=== PATIENT | female | born 1930 | race Two or more races ===

== ENCOUNTER → 2017-04-15 | Outpatient (CLI) | payer MEDICARE, MEDICAID ==
[~2017-04-15] MED LIST: ALEN70TA46 PO; DOCU-138 PO; GABA-531 PO; HYDROCORTISONE PO; LEVO50TA8 PO; LISI-186 PO; MIRT15TA6 PO; OMEP20CA10 PO; SIMV10TA6 PO; VIT D PO
== END | disposition home or self-care (01) ==
LOC: MRI 09:51
PROVIDERS: ATTEND Neurological Surgery
DX: M48.54XA Collapsed vertebra, not elsewhere classified, thoracic region, initial encounter for fracture (principal); M48.061 Spinal stenosis, lumbar region without neurogenic claudication; M12.88 Other specific arthropathies, not elsewhere classified, other specified site; M51.26 Other intervertebral disc displacement, lumbar region; X58.XXXA Exposure to other specified factors, initial encounter; Y93.89 Activity, other specified; Y92.89 Other specified places as the place of occurrence of the external cause; Y99.8 Other external cause status
CPT/HCPCS: 72148

== ENCOUNTER 2018-05-07 09:58 | Inpatient (IN) | payer MEDICARE, MEDICAID ==
[~2018-05-07] VITALS: Ht 142.2 cm; Wt 45.0 kg
[2018-05-07 10:28] LABS: BASOPHILS % 0.5 % (0.0-2.0); EOSINOPHILS % 2.1 % (0.0-5.0); HEMATOCRIT. 41.3 % (36.0-48.0); HEMOGLOBIN. 13.7 g/dL (12.0-16.0); LYMPHOCYTES % 38.4 % (20.0-50.0); MEAN CORPUSCULAR HEMOGLOBIN 29.9 pg (28.0-32.0); MEAN CORPUSCULAR VOLUME 90.4 fL (81.0-99.0); MEAN PLATELET VOLUME 7.6 fl (7.4-10.4); MONOCYTES % 7.2 % (2.0-8.0); NEUTROPHILS % 51.8 % (40.0-76.0); PLATELET 231 x1000/uL (130-400); RED BLOOD CELL COUNT 4.57 mill/uL (4.2-5.4); RED CELL DISTRIBUTION WIDTH 15.7 % (11.6-14.6)
[2018-05-07] MEDS ORDERED: SODIUM CHLORIDE 0.9% 1,000 ML IV ONE (10:29)
[2018-05-07 10:34] LABS: CHLORIDE 101 mEq/L (98-107)
[2018-05-07 10:38] LABS: ETHANOL BLOOD < 10 mg/dL
[2018-05-07] MEDS ORDERED: LORAZEPAM 2MG/ML CPJ ONE (10:41)
[2018-05-07] MEDS ORDERED: ATROPINE SULFATE 1MG/10ML SYR ONE (10:41)
[2018-05-07] MEDS ORDERED: LEVOFLOXACIN 750MG PREMIX 150 ML IV ONE (10:45)
[2018-05-07] MEDS ORDERED: SODIUM CHLORIDE 0.9% 1000ML BAG (SEPSIS BOLUS) IV ONE (10:45)
[2018-05-07] MEDS ORDERED: LEVETIRACETAM 1000MG/100ML 100 ML IV ONE (10:45)
[2018-05-07] MEDS: SODIUM CHLORIDE 0.45% 1,000 ML IV SCH (11:59)
[2018-05-07] MEDS ORDERED: NA PHOS,M-B/NA PHOS,DI-BA ENEMA 118ML PR PRN (12:00)
[2018-05-07] MEDS ORDERED: ONDANSETRON HCL 4MG/2ML INJ IV PRN (12:00)
[2018-05-07] MEDS ORDERED: IPRATROPIUM/ALBUTEROL 0.5-3(2.5)MG/3ML NEB INH PRN (12:00)
[2018-05-07] MEDS ORDERED: ENOXAPARIN 40MG/0.4ML SYR SUBCUT SCH (12:00)
[2018-05-07] MEDS ORDERED: HYDROMORPHONE HCL/PF 2MG/ML CPJ IV PRN (12:00)
[2018-05-07] MEDS ORDERED: MAGNESIUM/ALUMINUM HYDROXIDE/SIMETHICONE 30ML UDC PO PRN (12:00)
[2018-05-07] MEDS ORDERED: GUAIFENESIN 200MG/10ML SUGAR FREE UDC PO PRN (12:00)
[2018-05-07] MEDS ORDERED: DIPHENHYDRAMINE 50MG/ML VIAL IV PRN (12:00)
[2018-05-07] MEDS ORDERED: DOCUSATE SODIUM 100MG CAPSULE PO PRN (12:00)
[2018-05-07] MEDS ORDERED: HYDROCODONE/ACETAMINOPHEN 5/325MG TABLET PO PRN (12:00)
[2018-05-07 12:39] LABS: PROTHROMBIN TIME 10.5 sec (9.1-11.1)
[2018-05-07 13:05] LABS: CLARITY URINE CLEAR (CLEAR); COLOR URINE YELLOW (YELLOW); KETONES URINE NEGATIVE (NEGATIVE); LEUKOCYTE ESTERASE URINE NEGATIVE (NEGATIVE); NITRITE URINE NEGATIVE (NEGATIVE); OCCULT BLOOD URINE TRACE (NEGATIVE); PH URINE 7.5 (4.5-8.0); PROTEIN URINE NEGATIVE (NEGATIVE); SPECIFIC GRAVITY URINE 1.006 (1.005-1.030); UROBILINOGEN URINE 0.2 E.U./dL (0.2-1.0)
[2018-05-07 13:15] LABS: *BARBITURATES SCREEN URINE NEGATIVE (NEGATIVE); CANNABINOID URINE SCREEN NEGATIVE (NEGATIVE); METHADONE URINE SCREEN NEGATIVE (NEGATIVE); OPIATES URINE SCREEN NEGATIVE (NEGATIVE); PHENCYCLIDINE URINE SCREEN NEGATIVE (NEGATIVE)
[2018-05-07 13:16] LABS: *AMPHETAMINES SCREEN URINE NEGATIVE (NEGATIVE); *BENZODIAZEPINES SCREEN URINE NEGATIVE (NEGATIVE); *COCAINE SCREEN URINE NEGATIVE (NEGATIVE)
[2018-05-07 16:05] VITALS: BP 155/70
[2018-05-07 16:23] VITALS: BP 155/70
[2018-05-07] MEDS: ENOXAPARIN 30MG/0.3ML SYR SUBCUT SCH (16:47)
[2018-05-07 18:00] VITALS: BP 144/81
[2018-05-07] MEDS ORDERED: DEXTROSE 50% WATER 50ML SYRINGE IV PRN (19:45)
[2018-05-07 20:00] VITALS: BP 135/82
[2018-05-07] MEDS: INSULIN LISPRO 100 UNITS/ML SUBCUT SCH (21:00)
[2018-05-07] MEDS: BLOOD SUGAR DIAGNOSTIC STRIP TEST SCH (21:00)
[2018-05-07 22:00] VITALS: BP 135/81
[2018-05-08] VITALS (13 sets, daily range): BP systolic 110–171; BP diastolic 42–91
[2018-05-08 00:10] LABS: CHLORIDE 104 mEq/L (98-107)
[2018-05-08] MEDS: BLOOD SUGAR DIAGNOSTIC STRIP TEST SCH ×4 (07:14→21:03)
[2018-05-08] MEDS: INSULIN LISPRO 100 UNITS/ML SUBCUT SCH ×4 (07:15→21:00)
[2018-05-08] MEDS: CLONIDINE 0.1MG TABLET PO PRN ×2 (08:13→23:16)
[2018-05-08 08:28] LABS: BASOPHILS % 0.7 % (0.0-2.0); EOSINOPHILS % 2.5 % (0.0-5.0); HEMATOCRIT. 38.2 % (36.0-48.0); HEMOGLOBIN. 12.7 g/dL (12.0-16.0); MEAN CORPUSCULAR HEMOGLOBIN 29.8 pg (28.0-32.0); MEAN CORPUSCULAR VOLUME 89.6 fL (81.0-99.0); MEAN PLATELET VOLUME 8.2 fl (7.4-10.4); MONOCYTES % 8.8 % (2.0-8.0); PLATELET 214 x1000/uL (130-400); RED BLOOD CELL COUNT 4.26 mill/uL (4.2-5.4)
[2018-05-08] MEDS ORDERED: ASPIRIN 81MG EC TABLET PO SCH (09:00)
[2018-05-08 09:02] LABS: CHLORIDE 102 mEq/L (98-107)
[2018-05-08 09:21] LABS: T4 FREE 1.16 ng/dL (0.76-1.46)
[2018-05-08 09:22] LABS: HDL CHOLESTEROL 80 mg/dL (40-59); LDL CHOLESTEROL 69 mg/dL (5-100)
[2018-05-08] MEDS: AMLODIPINE 5MG TABLET PO SCH ×2 (11:40→20:59)
[2018-05-08] MEDS: SODIUM CHLORIDE 0.45% 1,000 ML IV SCH (11:40)
[2018-05-08] MEDS: LISINOPRIL 10MG TABLET PO SCH ×2 (14:03→20:58)
[2018-05-08] MEDS: ENOXAPARIN 30MG/0.3ML SYR SUBCUT SCH (17:10)
[2018-05-08] MEDS: ACETAMINOPHEN 325MG TABLET PO PRN (20:59)
[2018-05-08] MEDS: LORAZEPAM 2MG/ML CPJ IV PRN (23:17)
[2018-05-09] VITALS: BP 136/70
[2018-05-09 04:00] VITALS: BP 136/79
[2018-05-09] MEDS: SODIUM CHLORIDE 0.45% 1,000 ML IV SCH (04:24)
[2018-05-09] MEDS: BLOOD SUGAR DIAGNOSTIC STRIP TEST SCH ×4 (06:43→20:18)
[2018-05-09 07:24] LABS: BASOPHILS % 0.8 % (0.0-2.0); EOSINOPHILS % 3.7 % (0.0-5.0); HEMATOCRIT. 40.1 % (36.0-48.0); HEMOGLOBIN. 13.1 g/dL (12.0-16.0); LYMPHOCYTES % 30.3 % (20.0-50.0); MEAN CORPUSCULAR HEMOGLOBIN 29.6 pg (28.0-32.0); MEAN CORPUSCULAR VOLUME 90.6 fL (81.0-99.0); MEAN PLATELET VOLUME 7.7 fl (7.4-10.4); MONOCYTES % 10.7 % (2.0-8.0); NEUTROPHILS % 54.5 % (40.0-76.0); PLATELET 184 x1000/uL (130-400); RED BLOOD CELL COUNT 4.43 mill/uL (4.2-5.4); RED CELL DISTRIBUTION WIDTH 15.7 % (11.6-14.6)
[2018-05-09 08:00] VITALS: BP 136/68
[2018-05-09] MEDS: INSULIN LISPRO 100 UNITS/ML SUBCUT SCH ×4 (08:10→20:18)
[2018-05-09 08:23] LABS: CHLORIDE 103 mEq/L (98-107)
[2018-05-09] MEDS: LISINOPRIL 10MG TABLET PO SCH ×2 (09:15→20:19)
[2018-05-09] MEDS: AMLODIPINE 5MG TABLET PO SCH ×2 (09:15→20:19)
[2018-05-09 12:00] VITALS: BP 148/77
[2018-05-09 16:00] VITALS: BP 123/57
[2018-05-09] MEDS: ENOXAPARIN 30MG/0.3ML SYR SUBCUT SCH (16:42)
[2018-05-09 20:00] VITALS: BP 136/57
[2018-05-10] VITALS: BP 128/54
[2018-05-10] MEDS: SODIUM CHLORIDE 0.45% 1,000 ML IV SCH ×2 (01:28→20:17)
[2018-05-10 04:00] VITALS: BP_SYST 108
[2018-05-10] MEDS: BLOOD SUGAR DIAGNOSTIC STRIP TEST SCH ×4 (07:40→20:09)
[2018-05-10 07:54] LABS: CHLORIDE 104 mEq/L (98-107)
[2018-05-10 08:00] VITALS: BP 147/66
[2018-05-10] MEDS: INSULIN LISPRO 100 UNITS/ML SUBCUT SCH ×4 (08:10→20:09)
[2018-05-10] MEDS: ACETAMINOPHEN 325MG TABLET PO PRN (08:50)
[2018-05-10] MEDS: AMLODIPINE 5MG TABLET PO SCH ×2 (08:50→20:18)
[2018-05-10] MEDS: LISINOPRIL 10MG TABLET PO SCH ×2 (08:50→20:17)
[2018-05-10 11:47] LABS: BASOPHILS % 0.6 % (0.0-2.0); EOSINOPHILS % 1.9 % (0.0-5.0); HEMATOCRIT. 40.7 % (36.0-48.0); HEMOGLOBIN. 13.4 g/dL (12.0-16.0); LYMPHOCYTES % 19.2 % (20.0-50.0); MEAN CORPUSCULAR HEMOGLOBIN 29.8 pg (28.0-32.0); MEAN CORPUSCULAR VOLUME 90.4 fL (81.0-99.0); MEAN PLATELET VOLUME 7.7 fl (7.4-10.4); MONOCYTES % 7.8 % (2.0-8.0); NEUTROPHILS % 70.5 % (40.0-76.0); PLATELET 202 x1000/uL (130-400); RED CELL DISTRIBUTION WIDTH 15.8 % (11.6-14.6)
[2018-05-10 12:00] VITALS: BP 143/68
[2018-05-10 12:51] LABS: VITAMIN B12 SERUM 1130 pg/mL (211-911)
[2018-05-10 16:00] VITALS: BP 153/61
[2018-05-10] MEDS: ENOXAPARIN 30MG/0.3ML SYR SUBCUT SCH (17:19)
[2018-05-10] MEDS: LORAZEPAM 2MG/ML CPJ IV PRN (18:44)
[2018-05-10 20:10] VITALS: BP 116/48
[2018-05-10] MEDS ORDERED: BRIN8DRO EACHEYE (21:19)
[2018-05-10] MEDS ORDERED: CYCL30DR EACHEYE (21:19)
[2018-05-10] MEDS ORDERED: ERYT1OIN6 EACHEYE (21:19)
[2018-05-11] VITALS: BP 151/63
[2018-05-11 04:00] VITALS: BP 123/53
[2018-05-11] MEDS: BLOOD SUGAR DIAGNOSTIC STRIP TEST SCH ×3 (07:49→16:13)
[2018-05-11] MEDS: INSULIN LISPRO 100 UNITS/ML SUBCUT SCH ×2 (07:49→13:10)
[2018-05-11 08:00] VITALS: BP 155/60
[2018-05-11] MEDS: LISINOPRIL 10MG TABLET PO SCH (08:51)
[2018-05-11] MEDS: AMLODIPINE 5MG TABLET PO SCH (08:51)
[2018-05-11 12:00] VITALS: BP 119/58
[2018-05-11 13:54] LABS: BASOPHILS % 0.4 % (0.0-2.0); EOSINOPHILS % 3.3 % (0.0-5.0); HEMOGLOBIN. 13.4 g/dL (12.0-16.0); LYMPHOCYTES % 27.7 % (20.0-50.0); MEAN CORPUSCULAR HEMOGLOBIN 29.8 pg (28.0-32.0); MEAN CORPUSCULAR VOLUME 90.9 fL (81.0-99.0); MEAN PLATELET VOLUME 7.4 fl (7.4-10.4); MONOCYTES % 10.8 % (2.0-8.0); NEUTROPHILS % 57.8 % (40.0-76.0); PLATELET 199 x1000/uL (130-400); RED BLOOD CELL COUNT 4.51 mill/uL (4.2-5.4); RED CELL DISTRIBUTION WIDTH 15.8 % (11.6-14.6)
[2018-05-11 13:57] LABS: CHLORIDE 101 mEq/L (98-107)
[2018-05-11 16:19] VITALS: BP 147/60
== END 2018-05-11 17:25 | disposition home or self-care (01) | DRG 53 ==
LOC: ER 09:58 → 3WST 11:48 → EDBEDREQSVC 11:50 → EDBEDREQ 11:50 → ENRESERV 14:37 → 7WST 05-08 22:00
PROVIDERS: ADMIT Internal Medicine; ATTEND Internal Medicine
DX: R56.9 Unspecified convulsions (principal); E46 Unspecified protein-calorie malnutrition; I11.0 Hypertensive heart disease with heart failure; E86.0 Dehydration; E11.9 Type 2 diabetes mellitus without complications; E03.9 Hypothyroidism, unspecified; F02.80 Dementia in other diseases classified elsewhere, unspecified severity, without behavioral disturbance, psychotic disturbance, mood disturbance, and anxiety; G30.9 Alzheimer's disease, unspecified; E78.5 Hyperlipidemia, unspecified; Z87.891 Personal history of nicotine dependence; I69.328 Other speech and language deficits following cerebral infarction; Z88.6 Allergy status to analgesic agent; Z82.49 Family history of ischemic heart disease and other diseases of the circulatory system; I69.90 Unspecified sequelae of unspecified cerebrovascular disease; Z68.22 Body mass index [BMI] 22.0-22.9, adult; Z79.899 Other long term (current) drug therapy
CPT/HCPCS: 36415; 70551; 71045; 80048; 80061; 80305; 82607; 82962; 83605; 83735; 83880; 84145; 84439; 84443; 84484; 93005; 93306; 93880; 96365; 96366; 96368; 99291; C1893; G0482; J0461; J1200; J1650; J1953; J1956; J2060; J7030

== ENCOUNTER 2018-05-12 11:04 | Emergency (ER) | payer MEDICARE, MEDICAID ==
[~2018-05-12] VITALS: Ht 152.4 cm; Wt 50.0 kg
[~2018-05-12 11:04] MED LIST changes: +BRIN8DRO EACHEYE; +CYCL30DR EACHEYE; +ERYT1OIN6 EACHEYE
[2018-05-12 13:11] LABS: BASOPHILS % 0.2 % (0.0-2.0); EOSINOPHILS % 1.4 % (0.0-5.0); HEMATOCRIT. 39.5 % (36.0-48.0); HEMOGLOBIN. 13.1 g/dL (12.0-16.0); LYMPHOCYTES % 13.3 % (20.0-50.0); MEAN CORPUSCULAR HEMOGLOBIN 30.4 pg (28.0-32.0); MEAN CORPUSCULAR VOLUME 91.8 fL (81.0-99.0); MEAN PLATELET VOLUME 7.4 fl (7.4-10.4); MONOCYTES % 7.5 % (2.0-8.0); NEUTROPHILS % 77.6 % (40.0-76.0); PLATELET 186 x1000/uL (130-400); RED CELL DISTRIBUTION WIDTH 16.3 % (11.6-14.6)
[2018-05-12 13:14] LABS: CHLORIDE 104 mEq/L (98-107)
[2018-05-12 13:17] LABS: PARTIAL THROMBOPLASTIN TIME 21.5 sec (23.4-31.0); PROTHROMBIN TIME 10.4 sec (9.1-11.1)
[2018-05-12 14:56] VITALS: BP 106/63
== END 2018-05-12 14:58 | disposition home or self-care (01) ==
LOC: ER 13:07
DX: R55 Syncope and collapse (principal); E78.00 Pure hypercholesterolemia, unspecified; I10 Essential (primary) hypertension; Z86.73 Personal history of transient ischemic attack (TIA), and cerebral infarction without residual deficits; Z79.899 Other long term (current) drug therapy; Z88.6 Allergy status to analgesic agent
CPT/HCPCS: 36415; 71045; 83880; 84484; 99284

== ENCOUNTER 2018-05-13 09:44 | Inpatient (IN) | payer MEDICARE, MEDICAID ==
[~2018-05-13] VITALS: Ht 147.3 cm; Wt 42.2 kg
[2018-05-13] MEDS ORDERED: SODIUM CHLORIDE 0.9% 1000ML BAG (SEPSIS BOLUS) IV ONE (10:15)
[2018-05-13 12:23] LABS: BASOPHILS % 0.6 % (0.0-2.0); HEMATOCRIT. 36.5 % (36.0-48.0); LYMPHOCYTES % 17.5 % (20.0-50.0); MEAN CORPUSCULAR HEMOGLOBIN 30.1 pg (28.0-32.0); MONOCYTES % 9.3 % (2.0-8.0); NEUTROPHILS % 70.6 % (40.0-76.0); PLATELET 198 x1000/uL (130-400); RED BLOOD CELL COUNT 4.01 mill/uL (4.2-5.4)
[2018-05-13 12:29] LABS: CLARITY URINE CLEAR (CLEAR); COLOR URINE YELLOW (YELLOW); KETONES URINE NEGATIVE (NEGATIVE); LEUKOCYTE ESTERASE URINE NEGATIVE (NEGATIVE); NITRITE URINE NEGATIVE (NEGATIVE); OCCULT BLOOD URINE TRACE (NEGATIVE); PH URINE 7.5 (4.5-8.0); PROTEIN URINE NEGATIVE (NEGATIVE); SPECIFIC GRAVITY URINE 1.011 (1.005-1.030); UROBILINOGEN URINE 0.2 E.U./dL (0.2-1.0)
[2018-05-13 12:30] LABS: PROTHROMBIN TIME 10.1 sec (9.1-11.1)
[2018-05-13 12:33] LABS: CHLORIDE 103 mEq/L (98-107)
[2018-05-13 21:00] VITALS: BP 161/66
[2018-05-13] MEDS ORDERED: DEXTROSE 50% WATER 50ML SYRINGE IV PRN (21:00)
[2018-05-13] MEDS: INSULIN LISPRO 100 UNITS/ML SUBCUT SCH (21:00)
[2018-05-13] MEDS: BLOOD SUGAR DIAGNOSTIC STRIP TEST SCH (21:00)
[2018-05-13] MEDS ORDERED: ONDANSETRON HCL 4MG/2ML INJ IV PRN (21:00)
[2018-05-13 22:00] VITALS: BP 161/66
[2018-05-13] MEDS: SODIUM CHLORIDE 0.9% INJ 3ML FLUSH IVF SCH (22:55)
[2018-05-13] MEDS: LEVETIRACETAM 500 MG in SODIUM CHLORIDE 0.9% 100 ML IV SCH (22:56)
[2018-05-14] VITALS: BP 128/54
[2018-05-14 04:00] VITALS: BP 133/71
[2018-05-14] MEDS: BLOOD SUGAR DIAGNOSTIC STRIP TEST SCH ×4 (06:30→21:59)
[2018-05-14] MEDS: SODIUM CHLORIDE 0.9% INJ 3ML FLUSH IVF SCH ×3 (06:30→21:59)
[2018-05-14] MEDS: INSULIN LISPRO 100 UNITS/ML SUBCUT SCH ×4 (06:31→21:00)
[2018-05-14 08:00] VITALS: BP 143/62
[2018-05-14] MEDS: LEVETIRACETAM 500 MG in SODIUM CHLORIDE 0.9% 100 ML IV SCH (09:38)
[2018-05-14 12:19] VITALS: BP 124/57
[2018-05-14] MEDS: ENOXAPARIN 30MG/0.3ML SYR SUBCUT SCH (14:40)
[2018-05-14 16:16] VITALS: BP 140/70
[2018-05-14 20:00] VITALS: BP 140/72
[2018-05-15] VITALS: BP 109/53
[2018-05-15 04:00] VITALS: BP 124/45
[2018-05-15] MEDS: BLOOD SUGAR DIAGNOSTIC STRIP TEST SCH ×2 (06:22→11:57)
[2018-05-15] MEDS: SODIUM CHLORIDE 0.9% INJ 3ML FLUSH IVF SCH (06:22)
[2018-05-15] MEDS: INSULIN LISPRO 100 UNITS/ML SUBCUT SCH ×2 (06:22→11:57)
[2018-05-15 08:00] VITALS: BP_SYST 146; BP_DIAS 56; BP_DIAS 64
[2018-05-15] MEDS: ENOXAPARIN 30MG/0.3ML SYR SUBCUT SCH (09:24)
[2018-05-15] MEDS: LEVETIRACETAM 500 MG in SODIUM CHLORIDE 0.9% 100 ML IV SCH ×3 (09:24)
[2018-05-15 12:00] VITALS: BP 96/72
[2018-05-15 13:35] VITALS: BP 114/56
== END 2018-05-15 14:50 | disposition home health service (06) | DRG 53 ==
LOC: ER 09:44 → 5WST 13:02 → EDBEDREQ 13:04 → ENRESERV 20:10
PROVIDERS: ADMIT Internal Medicine; ATTEND Internal Medicine
DX: G40.909 Epilepsy, unspecified, not intractable, without status epilepticus (principal); G93.41 Metabolic encephalopathy; G45.9 Transient cerebral ischemic attack, unspecified; E11.9 Type 2 diabetes mellitus without complications; F03.90 Unspecified dementia, unspecified severity, without behavioral disturbance, psychotic disturbance, mood disturbance, and anxiety; G90.8 Other disorders of autonomic nervous system; Z78.1 Physical restraint status; I10 Essential (primary) hypertension; Z86.73 Personal history of transient ischemic attack (TIA), and cerebral infarction without residual deficits; Z88.6 Allergy status to analgesic agent; Z79.899 Other long term (current) drug therapy
CPT/HCPCS: 36415; 71045; 82962; 83605; 84145; 84484; 93005; 96360; 96361; 97161; 97166; 99285; C1893; J1650; J1953; J7030; J7050

== ENCOUNTER 2018-05-16 10:07 | Inpatient (IN) | payer MEDICARE, MEDICAID ==
[~2018-05-16] VITALS: Ht 147.3 cm; Wt 49.4 kg
[~2018-05-16 10:07] MED LIST changes: -HYDROCORTISONE PO; -VIT D PO
[2018-05-16] MEDS ORDERED: SODIUM CHLORIDE 0.9% 1000ML BAG (SEPSIS BOLUS) IV ONE (10:30)
[2018-05-16] MEDS ORDERED: LIDOCAINE HCL 1% 20ML VIAL (Pyxis) INJ ONE (11:11)
[2018-05-16 13:02] LABS: CHLORIDE 104 mEq/L (98-107)
[2018-05-16 13:11] LABS: PROTHROMBIN TIME 10.3 sec (9.1-11.1)
[2018-05-16 13:20] LABS: BASOPHILS % 0.4 % (0.0-2.0); EOSINOPHILS % 1.2 % (0.0-5.0); HEMOGLOBIN. 11.7 g/dL (12.0-16.0); LYMPHOCYTES % 16.7 % (20.0-50.0); MEAN CORPUSCULAR HEMOGLOBIN 30.2 pg (28.0-32.0); MEAN CORPUSCULAR VOLUME 90.6 fL (81.0-99.0); MEAN PLATELET VOLUME 8.1 fl (7.4-10.4); MONOCYTES % 7.5 % (2.0-8.0); NEUTROPHILS % 74.2 % (40.0-76.0); PLATELET 184 x1000/uL (130-400); RED BLOOD CELL COUNT 3.86 mill/uL (4.2-5.4); RED CELL DISTRIBUTION WIDTH 15.7 % (11.6-14.6)
[2018-05-16 14:33] LABS: CLARITY URINE TURBID (CLEAR); COLOR URINE YELLOW (YELLOW); KETONES URINE NEGATIVE (NEGATIVE); LEUKOCYTE ESTERASE URINE 3+ (NEGATIVE); NITRITE URINE NEGATIVE (NEGATIVE); OCCULT BLOOD URINE 1+ (NEGATIVE); PH URINE 7.5 (4.5-8.0); PROTEIN URINE NEGATIVE (NEGATIVE); SPECIFIC GRAVITY URINE 1.008 (1.005-1.030)
[2018-05-16 20:00] VITALS: BP 122/53
[2018-05-16 21:10] VITALS: BP 122/53
[2018-05-16] MEDS ORDERED: ONDANSETRON HCL 4MG/2ML INJ IV PRN (22:00)
[2018-05-16] MEDS ORDERED: CLONIDINE 0.1MG TABLET PO PRN (22:00)
[2018-05-16] MEDS ORDERED: LORAZEPAM 2MG/ML CPJ IV PRN (22:00)
[2018-05-16] MEDS ORDERED: ACETAMINOPHEN 325MG TABLET PO PRN (22:00)
[2018-05-16] MEDS ORDERED: DEXTROSE 50% WATER 50ML SYRINGE IV PRN (22:00)
[2018-05-16] MEDS ORDERED: MAGNESIUM/ALUMINUM HYDROXIDE/SIMETHICONE 30ML UDC PO PRN (22:00)
[2018-05-16] MEDS: SODIUM CHLORIDE 0.9% 1,000 ML IV SCH (23:52)
[2018-05-16] MEDS: LEVETIRACETAM 500 MG in SODIUM CHLORIDE 0.9% 100 ML IV SCH (23:53)
[2018-05-16] MEDS: SODIUM CHLORIDE 0.9% INJ 3ML FLUSH IVF SCH (23:53)
[2018-05-17] VITALS: BP 117/61
[2018-05-17] MEDS: GABAPENTIN 100MG CAPSULE PO SCH ×4 (00:36→21:14)
[2018-05-17 04:00] VITALS: BP 111/49
[2018-05-17] MEDS ORDERED: LEVOTHYROXINE SODIUM 50MCG TABLET PO SCH (06:45)
[2018-05-17] MEDS: BLOOD SUGAR DIAGNOSTIC STRIP TEST SCH ×4 (06:48→21:06)
[2018-05-17] MEDS: INSULIN LISPRO 100 UNITS/ML SUBCUT SCH ×4 (06:48→21:00)
[2018-05-17] MEDS: OMEPRAZOLE 20MG CAPSULE EXTENDED RELEASE PO SCH (07:17)
[2018-05-17] MEDS: SODIUM CHLORIDE 0.9% INJ 3ML FLUSH IVF SCH ×3 (07:17→21:14)
[2018-05-17 08:00] VITALS: BP 149/66
[2018-05-17] MEDS: LEVETIRACETAM 500 MG in SODIUM CHLORIDE 0.9% 100 ML IV SCH ×2 (09:55→21:13)
[2018-05-17 12:00] VITALS: BP 146/73
[2018-05-17] MEDS: SODIUM CHLORIDE 0.9% 1,000 ML IV SCH ×2 (12:48→21:13)
[2018-05-17 16:00] VITALS: BP 141/75
[2018-05-17 20:00] VITALS: BP 154/69
[2018-05-17] MEDS ORDERED: ATORVASTATIN CALCIUM 20MG TABLET PO SCH (21:00)
[2018-05-18] VITALS: BP 130/52
[2018-05-18 04:00] VITALS: BP 135/52
[2018-05-18] MEDS ORDERED: LEVOTHYROXINE SODIUM 75MCG TABLET PO SCH (06:45)
[2018-05-18] MEDS: OMEPRAZOLE 20MG CAPSULE EXTENDED RELEASE PO SCH (07:08)
[2018-05-18] MEDS: GABAPENTIN 100MG CAPSULE PO SCH ×2 (07:08→13:49)
[2018-05-18] MEDS: BLOOD SUGAR DIAGNOSTIC STRIP TEST SCH ×2 (07:09→11:45)
[2018-05-18] MEDS: INSULIN LISPRO 100 UNITS/ML SUBCUT SCH ×2 (07:09→12:15)
[2018-05-18] MEDS: SODIUM CHLORIDE 0.9% INJ 3ML FLUSH IVF SCH ×2 (07:09→13:47)
[2018-05-18 08:00] VITALS: BP 168/80
[2018-05-18] MEDS: LEVETIRACETAM 500 MG in SODIUM CHLORIDE 0.9% 100 ML IV SCH (09:24)
[2018-05-18 12:00] VITALS: BP_SYST 120; BP_SYST 122; BP_DIAS 56; BP_DIAS 65
[2018-05-18] MEDS: SODIUM CHLORIDE 0.9% 1,000 ML IV SCH (13:47)
[2018-05-18 16:00] VITALS: BP 145/65
[2018-05-18 16:42] VITALS: BP 145/65
== END 2018-05-18 17:41 | disposition home or self-care (01) | DRG 53 ==
LOC: ER 10:21 → 5WST 14:32 → ENRESERV 19:07
PROVIDERS: ADMIT Internal Medicine; ATTEND Internal Medicine
PROC: 02H633Z Insertion of Infusion Device into Right Atrium, Percutaneous Approach (ICD-10-PCS; principal; 2018-05-16)
DX: G40.909 Epilepsy, unspecified, not intractable, without status epilepticus (principal); J84.9 Interstitial pulmonary disease, unspecified; I95.9 Hypotension, unspecified; E11.9 Type 2 diabetes mellitus without complications; F03.90 Unspecified dementia, unspecified severity, without behavioral disturbance, psychotic disturbance, mood disturbance, and anxiety; G90.8 Other disorders of autonomic nervous system; R15.9 Full incontinence of feces; R32 Unspecified urinary incontinence; I10 Essential (primary) hypertension; E03.9 Hypothyroidism, unspecified; Z79.899 Other long term (current) drug therapy; Z86.73 Personal history of transient ischemic attack (TIA), and cerebral infarction without residual deficits; Z88.6 Allergy status to analgesic agent
CPT/HCPCS: 36415; 36569; 71045; 76937; 82962; 83605; 83880; 84145; 84443; 84484; 87804; 93005; 93970; 96360; 96361; 99291; C1725; J1953; J3490; J7030; J7040; J7050

== ENCOUNTER 2018-09-07 17:10 | Inpatient (IN) | payer MEDICARE, MEDICAID ==
[~2018-09-07] VITALS: Ht 162.6 cm; Wt 45.4 kg
[~2018-09-07 17:10] MED LIST changes: -ALEN70TA46 PO; +ALEN70TA68 PO; -OMEP20CA10 PO; +OMEP20CA5 PO
[2018-09-07] MEDS ORDERED: ACETAMINOPHEN 325MG TABLET PO ONE (19:00)
[2018-09-07] MEDS ORDERED: DEXAMETHASONE 10 MG/ML VIAL IV ONE (20:45)
[2018-09-07] MEDS ORDERED: LEVETIRACETAM 500MG PREMIX 100 ML IV ONE (20:45)
[2018-09-07 21:10] LABS: BASOPHILS % 0.2 % (0.0-2.0); EOSINOPHILS % 0.1 % (0.0-5.0); HEMATOCRIT. 38.2 % (36.0-48.0); LYMPHOCYTES % 8.8 % (20.0-50.0); MEAN CORPUSCULAR VOLUME 88.1 fL (81.0-99.0); MONOCYTES % 6.6 % (2.0-8.0); NEUTROPHILS % 84.3 % (40.0-76.0); PLATELET 258 x1000/uL (130-400); RED BLOOD CELL COUNT 4.34 mill/uL (4.2-5.4); RED CELL DISTRIBUTION WIDTH 14.3 % (11.6-14.6)
[2018-09-07 21:13] LABS: CHLORIDE 98 mEq/L (98-107)
[2018-09-07] MEDS ORDERED: ONDANSETRON HCL 4MG/2ML INJ IV PRN (21:15)
[2018-09-07] MEDS ORDERED: DEXTROSE 50% WATER 50ML SYRINGE IV PRN (21:15)
[2018-09-07] MEDS ORDERED: LORAZEPAM 2MG/ML CPJ IV PRN (21:15)
[2018-09-07] MEDS ORDERED: ACETAMINOPHEN 325MG TABLET PO PRN (21:15)
[2018-09-07 21:16] LABS: PARTIAL THROMBOPLASTIN TIME 23.7 sec (23.4-31.0); PROTHROMBIN TIME 10.2 sec (9.6-11.0)
[2018-09-07] MEDS ORDERED: HYDRALAZINE 20MG/ML VIAL IV ONE ×2 (22:00→22:15)
[2018-09-07] MEDS ORDERED: MORPHINE SULFATE 2 MG/ML CPJ (NOT FOR IM USE) IV PRN (22:15)
[2018-09-07 23:15] VITALS: BP 164/101
[2018-09-07 23:30] VITALS: BP 194/117
[2018-09-07] MEDS ORDERED: LEVETIRACETAM 500 MG in SODIUM CHLORIDE 0.9% 100 ML IV SCH (23:30)
[2018-09-07] MEDS ORDERED: NICARDIPINE 50 MG in SODIUM CHLORIDE 0.9% 230 ML IV PRN ×4 (23:30)
[2018-09-07 23:36] VITALS: BP 140/74
[2018-09-07 23:45] VITALS: BP 136/72
[2018-09-07 23:46] LABS: CLARITY URINE TURBID (CLEAR); COLOR URINE YELLOW (YELLOW); KETONES URINE TRACE (NEGATIVE); LEUKOCYTE ESTERASE URINE 3+ (NEGATIVE); NITRITE URINE NEGATIVE (NEGATIVE); OCCULT BLOOD URINE 2+ (NEGATIVE); PROTEIN URINE 1+ (NEGATIVE); SPECIFIC GRAVITY URINE 1.016 (1.005-1.030)
[2018-09-08] VITALS (95 sets, daily range): BP systolic 91–171; BP diastolic 35–126
[2018-09-08] MEDS: DEXT 5%/LACTATED RINGERS 1,000 ML IV SCH ×2 (00:23→18:01)
[2018-09-08] MEDS: DEXAMETHASONE 4MG/ML 1ML VIAL IV SCH ×4 (00:25→17:37)
[2018-09-08 05:49] LABS: HEMATOCRIT. 38.6 % (36.0-48.0); HEMOGLOBIN. 12.8 g/dL (12.0-16.0); MEAN CORPUSCULAR HEMOGLOBIN 29.3 pg (28.0-32.0); MEAN CORPUSCULAR VOLUME 88.6 fL (81.0-99.0); MEAN PLATELET VOLUME 7.6 fl (7.4-10.4); PLATELET 241 x1000/uL (130-400); RED BLOOD CELL COUNT 4.36 mill/uL (4.2-5.4); RED CELL DISTRIBUTION WIDTH 14.2 % (11.6-14.6)
[2018-09-08 06:10] LABS: CHLORIDE 100 mEq/L (98-107)
[2018-09-08] MEDS: BLOOD SUGAR DIAGNOSTIC STRIP TEST SCH ×4 (06:19→20:21)
[2018-09-08] MEDS: INSULIN LISPRO 100 UNITS/ML SUBCUT SCH ×4 (06:24→20:45)
[2018-09-08] MEDS ORDERED: KEPP500 PO (08:54)
[2018-09-08] MEDS ORDERED: HYDR5TAB8 PO (08:54)
[2018-09-08] MEDS: CEFTRIAXONE 1 G PREMIX 50 ML IV SCH (10:22)
[2018-09-08 12:57] LABS: PLATELET ESTIMATE NORMAL
[2018-09-08] MEDS: LISINOPRIL 20MG TABLET PO SCH (15:07)
[2018-09-08] MEDS: LEVETIRACETAM 500 MG in SODIUM CHLORIDE 0.9% 100 ML IV SCH (20:40)
[2018-09-09] VITALS (34 sets, daily range): BP systolic 100–166; BP diastolic 47–85
[2018-09-09] MEDS: DEXAMETHASONE 4MG/ML 1ML VIAL IV SCH ×5 (00:06→23:46)
[2018-09-09 05:59] LABS: HEMATOCRIT. 35.2 % (36.0-48.0); HEMOGLOBIN. 11.9 g/dL (12.0-16.0); MEAN CORPUSCULAR HEMOGLOBIN 29.9 pg (28.0-32.0); MEAN CORPUSCULAR VOLUME 88.6 fL (81.0-99.0); MEAN PLATELET VOLUME 8.4 fl (7.4-10.4); PLATELET 223 x1000/uL (130-400); RED BLOOD CELL COUNT 3.97 mill/uL (4.2-5.4); RED CELL DISTRIBUTION WIDTH 14.4 % (11.6-14.6)
[2018-09-09] MEDS: BLOOD SUGAR DIAGNOSTIC STRIP TEST SCH ×5 (05:59→21:00)
[2018-09-09 06:00] LABS: CHLORIDE 100 mEq/L (98-107)
[2018-09-09] MEDS: INSULIN LISPRO 100 UNITS/ML SUBCUT SCH ×5 (06:09→21:02)
[2018-09-09] MEDS: LISINOPRIL 20MG TABLET PO SCH (08:10)
[2018-09-09] MEDS: LEVETIRACETAM 500 MG in SODIUM CHLORIDE 0.9% 100 ML IV SCH ×2 (08:10→20:50)
[2018-09-09 08:24] LABS: PLATELET ESTIMATE NORMAL
[2018-09-09] MEDS: CEFTRIAXONE 1 G PREMIX 50 ML IV SCH (10:56)
[2018-09-09] MEDS: NYSTATIN POWDER 15GM TOP SCH (18:52)
[2018-09-09] MEDS: DEXT 5%/LACTATED RINGERS 1,000 ML IV SCH (19:41)
[2018-09-10] VITALS: BP 151/79
[2018-09-10 04:00] VITALS: BP 152/82
[2018-09-10] MEDS: DEXAMETHASONE 4MG/ML 1ML VIAL IV SCH ×4 (06:33→23:51)
[2018-09-10] MEDS: BLOOD SUGAR DIAGNOSTIC STRIP TEST SCH ×4 (06:40→21:09)
[2018-09-10] MEDS: INSULIN LISPRO 100 UNITS/ML SUBCUT SCH ×4 (07:30→21:15)
[2018-09-10 07:53] LABS: HEMOGLOBIN. 13.1 g/dL (12.0-16.0); MEAN CORPUSCULAR HEMOGLOBIN 29.2 pg (28.0-32.0); MEAN CORPUSCULAR VOLUME 89.5 fL (81.0-99.0); MEAN PLATELET VOLUME 7.4 fl (7.4-10.4); PLATELET 249 x1000/uL (130-400); RED BLOOD CELL COUNT 4.48 mill/uL (4.2-5.4); RED CELL DISTRIBUTION WIDTH 14.5 % (11.6-14.6)
[2018-09-10 08:00] VITALS: BP 139/56
[2018-09-10 08:04] LABS: CHLORIDE 100 mEq/L (98-107)
[2018-09-10] MEDS: LEVETIRACETAM 500 MG in SODIUM CHLORIDE 0.9% 100 ML IV SCH ×2 (09:32→21:04)
[2018-09-10] MEDS: NYSTATIN POWDER 15GM TOP SCH ×2 (09:32→17:29)
[2018-09-10] MEDS: LISINOPRIL 20MG TABLET PO SCH (09:32)
[2018-09-10] MEDS: CEFTRIAXONE 1 G PREMIX 50 ML IV SCH (11:17)
[2018-09-10 12:00] VITALS: BP 145/94
[2018-09-10 14:07] LABS: PLATELET ESTIMATE NORMAL
[2018-09-10] MEDS: CLONIDINE 0.1MG TABLET PO PRN (15:12)
[2018-09-10 16:00] VITALS: BP 130/65
[2018-09-10 20:00] VITALS: BP 137/64
[2018-09-11] VITALS: BP 160/80
[2018-09-11] MEDS: CLONIDINE 0.1MG TABLET PO PRN (02:31)
[2018-09-11 04:00] VITALS: BP 162/82
[2018-09-11] MEDS: DEXAMETHASONE 4MG/ML 1ML VIAL IV SCH ×3 (05:23→17:41)
[2018-09-11] MEDS: BLOOD SUGAR DIAGNOSTIC STRIP TEST SCH ×3 (06:42→17:38)
[2018-09-11 07:47] LABS: HEMATOCRIT. 33.6 % (36.0-48.0); HEMOGLOBIN. 11.4 g/dL (12.0-16.0); MEAN CORPUSCULAR HEMOGLOBIN 29.9 pg (28.0-32.0); MEAN CORPUSCULAR VOLUME 87.9 fL (81.0-99.0); MEAN PLATELET VOLUME 7.5 fl (7.4-10.4); PLATELET 209 x1000/uL (130-400); RED BLOOD CELL COUNT 3.82 mill/uL (4.2-5.4); RED CELL DISTRIBUTION WIDTH 14.4 % (11.6-14.6)
[2018-09-11] MEDS: INSULIN LISPRO 100 UNITS/ML SUBCUT SCH ×3 (07:50→18:05)
[2018-09-11 08:00] VITALS: BP 114/54
[2018-09-11 08:59] LABS: CHLORIDE 100 mEq/L (98-107)
[2018-09-11] MEDS: LISINOPRIL 20MG TABLET PO SCH (09:00)
[2018-09-11] MEDS: NYSTATIN POWDER 15GM TOP SCH ×2 (09:00→17:38)
[2018-09-11] MEDS: LEVETIRACETAM 500 MG in SODIUM CHLORIDE 0.9% 100 ML IV SCH (09:00)
[2018-09-11] MEDS: CEFTRIAXONE 1 G PREMIX 50 ML IV SCH (11:46)
[2018-09-11 12:00] VITALS: BP 140/67
[2018-09-11 16:00] VITALS: BP 137/95
[2018-09-11] MEDS ORDERED: DEX4 MT (16:30)
[2018-09-11] MEDS ORDERED: NITR-87 MT (16:30)
[2018-09-11 18:13] VITALS: BP 137/95
== END 2018-09-11 19:06 | disposition home health service (06) | DRG 720 ==
LOC: ER 17:10 → MICUSO 20:37 → EDBEDREQTM 20:54 → EDBEDREQ 20:54 → EDBEDREQSVC 20:54 → ENRESERV 22:12 → 6EST 09-09 11:10
PROVIDERS: ADMIT Internal Medicine; ATTEND Internal Medicine
DX: A41.9 Sepsis, unspecified organism (principal); G93.41 Metabolic encephalopathy; E11.9 Type 2 diabetes mellitus without complications; F03.90 Unspecified dementia, unspecified severity, without behavioral disturbance, psychotic disturbance, mood disturbance, and anxiety; S06.340A Traumatic hemorrhage of right cerebrum without loss of consciousness, initial encounter; N39.0 Urinary tract infection, site not specified; I10 Essential (primary) hypertension; E78.5 Hyperlipidemia, unspecified; G40.909 Epilepsy, unspecified, not intractable, without status epilepticus; R29.6 Repeated falls; W18.12XA Fall from or off toilet with subsequent striking against object, initial encounter; Y93.89 Activity, other specified; Y92.89 Other specified places as the place of occurrence of the external cause; Y99.8 Other external cause status; Z86.73 Personal history of transient ischemic attack (TIA), and cerebral infarction without residual deficits; Z88.6 Allergy status to analgesic agent
CPT/HCPCS: 36415; 71045; 80048; 82962; 83036; 83880; 84484; 86850; 86900; 87077; 87186; 92610; 93005; 97162; 97167; 97530; 99285; J0360; J0696; J1100; J1815; J1953; J2270; J7050; A4315

== ENCOUNTER 2019-01-16 14:01 | Inpatient (IN) | payer MEDICARE, MEDICAID ==
[~2019-01-16] VITALS: Ht 160 cm; Wt 40.8 kg
[~2019-01-16 14:01] MED LIST changes: -ALEN70TA68 PO; +DEX4 MT; -DOCU-138 PO; -ERYT1OIN6 EACHEYE; +HYDR5TAB8 PO; +KEPP500 PO; -MIRT15TA6 PO; +NITR-87 MT
[2019-01-16] MEDS ORDERED: SODIUM CHLORIDE 0.9% 1,000 ML IV ONE (15:04)
[2019-01-16 16:00] LABS: BASOPHILS % 0.4 % (0.0-2.0); EOSINOPHILS % 1.4 % (0.0-5.0); HEMATOCRIT. 39.6 % (36.0-48.0); HEMOGLOBIN. 13.1 g/dL (12.0-16.0); MEAN CORPUSCULAR HEMOGLOBIN 29.8 pg (28.0-32.0); MEAN CORPUSCULAR VOLUME 89.7 fL (81.0-99.0); MONOCYTES % 6.8 % (2.0-8.0); NEUTROPHILS % 76.4 % (40.0-76.0); PLATELET 256 x1000/uL (130-400); RED BLOOD CELL COUNT 4.41 mill/uL (4.2-5.4); RED CELL DISTRIBUTION WIDTH 14.4 % (11.6-14.6)
[2019-01-16 16:03] LABS: PROTHROMBIN TIME 10.6 sec (9.6-11.0)
[2019-01-16 16:04] LABS: CHLORIDE 97 mEq/L (98-107)
[2019-01-16 18:50] LABS: CLARITY URINE CLOUDY (CLEAR); COLOR URINE YELLOW (YELLOW); KETONES URINE NEGATIVE (NEGATIVE); LEUKOCYTE ESTERASE URINE 3+ (NEGATIVE); NITRITE URINE NEGATIVE (NEGATIVE); OCCULT BLOOD URINE 2+ (NEGATIVE); PROTEIN URINE NEGATIVE (NEGATIVE); SPECIFIC GRAVITY URINE 1.006 (1.005-1.030); UROBILINOGEN URINE 0.2 E.U./dL (0.2-1.0)
[2019-01-16 21:30] VITALS: BP 157/84
[2019-01-17] VITALS: BP 153/79
[2019-01-17] MEDS ORDERED: DEXTROSE 50% WATER 50ML SYRINGE IV PRN (00:15)
[2019-01-17] MEDS ORDERED: ONDANSETRON HCL 4MG/2ML INJ IV PRN (00:15)
[2019-01-17] MEDS ORDERED: CLONIDINE 0.1MG TABLET PO PRN (00:15)
[2019-01-17] MEDS ORDERED: DIPHENHYDRAMINE 50MG/ML VIAL IV PRN (00:15)
[2019-01-17] MEDS ORDERED: LORAZEPAM 2MG/ML CPJ IV PRN (00:15)
[2019-01-17] MEDS ORDERED: MAGNESIUM/ALUMINUM HYDROXIDE/SIMETHICONE 30ML UDC PO PRN (00:15)
[2019-01-17] MEDS ORDERED: ACETAMINOPHEN 325MG TABLET PO PRN (00:15)
[2019-01-17] MEDS ORDERED: OMEP40CA34 PO (00:53)
[2019-01-17] MEDS ORDERED: GABA-529 PO (00:54)
[2019-01-17] MEDS ORDERED: FLUO20SO2 PO (01:05)
[2019-01-17] MEDS: LISINOPRIL 5MG TABLET PO SCH ×3 (02:27→16:54)
[2019-01-17] MEDS: CEFTRIAXONE 1 G PREMIX 50 ML IV SCH (02:44)
[2019-01-17 04:00] VITALS: BP 159/82
[2019-01-17] MEDS: SODIUM CHLORIDE 0.9% INJ 3ML FLUSH IVF SCH ×3 (05:57→22:15)
[2019-01-17] MEDS: BLOOD SUGAR DIAGNOSTIC STRIP TEST SCH ×4 (05:58→21:00)
[2019-01-17] MEDS: INSULIN LISPRO 100 UNITS/ML SUBCUT SCH ×4 (05:58→21:00)
[2019-01-17 07:48] VITALS: BP 176/80
[2019-01-17] MEDS ORDERED: LISINOPRIL 5MG TABLET PO SCH (09:00)
[2019-01-17] MEDS: AMLODIPINE 5MG TABLET PO SCH (09:04)
[2019-01-17] MEDS: LEVETIRACETAM 500 MG in SODIUM CHLORIDE 0.9% 100 ML IV SCH ×2 (09:05→22:15)
[2019-01-17] MEDS: LEVOTHYROXINE SODIUM 50MCG TABLET PO SCH (09:05)
[2019-01-17 12:23] VITALS: BP 142/56
[2019-01-17] MEDS: ENOXAPARIN 30MG/0.3ML SYR SUBCUT SCH (14:42)
[2019-01-17 16:10] VITALS: BP 133/64
[2019-01-17] MEDS ORDERED: OLOP5DRO14 EACHEYE (17:00)
[2019-01-17] MEDS ORDERED: NON FORMULARY PATIENT HOME MED XX SCH (17:15)
[2019-01-17 20:00] VITALS: BP 125/87
[2019-01-17] MEDS: GABAPENTIN 100MG CAPSULE PO SCH (22:14)
[2019-01-17] MEDS: FAMOTIDINE 20MG TABLET PO SCH (22:14)
[2019-01-17] MEDS: NAPHAZOLINE HCL/PHENIR MAL OPHTH SOLN 15ML BOTHEYE SCH (23:12)
[2019-01-18] VITALS (7 sets, daily range): BP systolic 112–162; BP diastolic 62–78
[2019-01-18] MEDS: CEFTRIAXONE 1 G PREMIX 50 ML IV SCH (01:26)
[2019-01-18] MEDS: SODIUM CHLORIDE 0.9% INJ 3ML FLUSH IVF SCH ×3 (06:25→20:27)
[2019-01-18] MEDS: INSULIN LISPRO 100 UNITS/ML SUBCUT SCH ×4 (06:39→20:27)
[2019-01-18] MEDS: BLOOD SUGAR DIAGNOSTIC STRIP TEST SCH ×4 (06:39→20:26)
[2019-01-18] MEDS: ENOXAPARIN 30MG/0.3ML SYR SUBCUT SCH (08:33)
[2019-01-18] MEDS: AMLODIPINE 5MG TABLET PO SCH (08:33)
[2019-01-18] MEDS: LEVETIRACETAM 500 MG in SODIUM CHLORIDE 0.9% 100 ML IV SCH ×2 (08:33→20:52)
[2019-01-18] MEDS: LISINOPRIL 5MG TABLET PO SCH ×2 (08:34→17:54)
[2019-01-18] MEDS: LEVOTHYROXINE SODIUM 50MCG TABLET PO SCH (08:34)
[2019-01-18 09:10] LABS: BASOPHILS % 0.7 % (0.0-2.0); EOSINOPHILS % 3.1 % (0.0-5.0); HEMOGLOBIN. 12.7 g/dL (12.0-16.0); LYMPHOCYTES % 27.2 % (20.0-50.0); MEAN CORPUSCULAR HEMOGLOBIN 29.9 pg (28.0-32.0); MEAN CORPUSCULAR VOLUME 89.6 fL (81.0-99.0); MEAN PLATELET VOLUME 7.5 fl (7.4-10.4); PLATELET 205 x1000/uL (130-400); RED BLOOD CELL COUNT 4.24 mill/uL (4.2-5.4); RED CELL DISTRIBUTION WIDTH 14.5 % (11.6-14.6)
[2019-01-18] MEDS: NAPHAZOLINE HCL/PHENIR MAL OPHTH SOLN 15ML BOTHEYE SCH ×2 (09:10→17:54)
[2019-01-18 09:43] LABS: CHLORIDE 100 mEq/L (98-107)
[2019-01-18] MEDS: GABAPENTIN 100MG CAPSULE PO SCH (19:54)
[2019-01-18] MEDS: FAMOTIDINE 20MG TABLET PO SCH (19:54)
[2019-01-19] VITALS: BP 129/67
[2019-01-19] MEDS: CEFTRIAXONE 1 G PREMIX 50 ML IV SCH (02:25)
[2019-01-19 04:00] VITALS: BP 124/76
[2019-01-19] MEDS: SODIUM CHLORIDE 0.9% INJ 3ML FLUSH IVF SCH ×2 (05:17→14:00)
[2019-01-19] MEDS: BLOOD SUGAR DIAGNOSTIC STRIP TEST SCH ×3 (07:40→17:40)
[2019-01-19 08:00] VITALS: BP 149/68
[2019-01-19] MEDS: INSULIN LISPRO 100 UNITS/ML SUBCUT SCH ×3 (08:10→18:10)
[2019-01-19] MEDS: AMLODIPINE 5MG TABLET PO SCH (08:42)
[2019-01-19] MEDS: LISINOPRIL 5MG TABLET PO SCH ×2 (08:42→17:08)
[2019-01-19] MEDS: LEVOTHYROXINE SODIUM 50MCG TABLET PO SCH (08:42)
[2019-01-19] MEDS: LEVETIRACETAM 500 MG in SODIUM CHLORIDE 0.9% 100 ML IV SCH (08:43)
[2019-01-19] MEDS: NAPHAZOLINE HCL/PHENIR MAL OPHTH SOLN 15ML BOTHEYE SCH ×2 (08:43→17:08)
[2019-01-19] MEDS: ENOXAPARIN 30MG/0.3ML SYR SUBCUT SCH (08:43)
[2019-01-19] MEDS ORDERED: METOPROLOL TARTRATE 25MG TABLET PO SCH (10:30)
[2019-01-19 12:00] VITALS: BP 137/58
[2019-01-19 16:00] VITALS: BP 113/65
[2019-01-19 18:00] VITALS: BP 113/65
== END 2019-01-19 18:54 | disposition home or self-care (01) | DRG 52 ==
LOC: ER 14:08 → 7WST 18:12 → EDBEDREQ 18:20 → ENRESERV 19:31
PROVIDERS: ADMIT Internal Medicine; ATTEND Internal Medicine
DX: G93.41 Metabolic encephalopathy (principal); N39.0 Urinary tract infection, site not specified; E87.5 Hyperkalemia; I31.3 Pericardial effusion (noninflammatory); B96.89 Other specified bacterial agents as the cause of diseases classified elsewhere; E11.9 Type 2 diabetes mellitus without complications; E03.9 Hypothyroidism, unspecified; I11.9 Hypertensive heart disease without heart failure; G90.9 Disorder of the autonomic nervous system, unspecified; G40.909 Epilepsy, unspecified, not intractable, without status epilepticus; I25.10 Atherosclerotic heart disease of native coronary artery without angina pectoris; Z79.4 Long term (current) use of insulin; Z86.73 Personal history of transient ischemic attack (TIA), and cerebral infarction without residual deficits; Z82.49 Family history of ischemic heart disease and other diseases of the circulatory system; Z91.81 History of falling; Z95.5 Presence of coronary angioplasty implant and graft; Z79.899 Other long term (current) drug therapy; Z88.6 Allergy status to analgesic agent; Z68.1 Body mass index [BMI] 19.9 or less, adult
CPT/HCPCS: 36415; 70551; 71045; 80048; 81003; 82962; 83036; 84443; 84484; 87077; 87186; 93005; 93306; 93970; 96365; 99285; A6261; C1893; J0696; J1650; J1953; J7030; J7050